=== PATIENT | male | born 1960 | race African-American/Black ===

== ENCOUNTER → 2016-12-26 | Outpatient (CLI) | payer BC ==
[2016-05-31 15:00] VITALS: BP 128/85
[~2016-12-26] MED LIST: ASPI81TA9 PO; ATOR10TA60 PO; INSU100V8 SQ; LIRA0.6P SQ; OLME1TAB35 PO
--- NOTE | 2016-12-26 10:04 | KCIC ---
MR CERVICAL SPINE Indication: Left shoulder and neck pain. Technique: Sagittal T2, sagittal STIR, sagittal T1, and axial gradient echo imaging was obtained of the cervical spine. FINDINGS: There is straightening of the cervical lordosis. Alignment is normal. Vertebral body heights are maintained. Bone marrow signal is within normal limits. There is no cord signal abnormality. The soft tissues of the neck are within normal limits. At C5-6 there is a disc osteophyte complex which causes mild mass effect upon the right aspect of the cord. There is also at least mild to moderate right foraminal stenosis from uncovertebral hypertrophy. Correlate for possible right C6 radiculopathy symptoms. At C6-7 there is a right-sided disc osteophyte complex causing mild mass effect upon the right aspect of the cord. There is also mild right foraminal narrowing. Left uncovertebral hypertrophy causes at least mild to moderate left foraminal stenosis. Correlate for bilateral C7 radiculopathy symptoms. IMPRESSION: At C6-7 there is mild mass effect upon the right aspect of the cord and bilateral foraminal stenosis. Correlate for C7 radiculopathy symptoms. At C5-6 there is mass effect upon the right aspect of the cord and right foraminal narrowing. Correlate for C6 radiculopathy symptoms on the right. Electronically signed by: Russ Wilkins MD (12/26/2016 10:00 AM)
== END | disposition home or self-care (01) ==
LOC: KCIC MRI 08:21
PROVIDERS: ATTEND Family Medicine
DX: M54.12 Radiculopathy, cervical region (principal); M48.02 Spinal stenosis, cervical region
CPT/HCPCS: 72141

== ENCOUNTER → 2017-01-10 | Outpatient (CLI) | payer BC ==
[2016-05-31 15:00] VITALS: BP 128/85
[~2017-01-10] MED LIST changes: +ASPI-612 PO; -ASPI81TA9 PO; +IOHEXOL 180 MG/ML 10 ML VIAL. ONE; +methylPREDNISolone ACETATE 40 MG/ML VIAL. ONE; +methylPREDNISolone ACETATE 80 MG/ML VIAL. ONE
--- NOTE | 2017-01-11 02:17 | PAIN ---
DATE OF SERVICE: 01/10/2017 INITIAL CONSULTATION FOR PAIN CLINIC CHIEF COMPLAINT: Neck and left upper extremity pain. HISTORY OF PRESENT ILLNESS: This is a 56-year-old male who presents with history of pain for about 8 months, increasing gradually over time, but it came on suddenly, but not a result of any specific injury or accident he is aware of. Now pain in the base of the neck, left shoulder, mostly in the posterior scapular region and into the anterior pectoral and into the arm, into the biceps with spasms and a "heavy feeling" in his arm. He did have a cardiac workup for the left-sided pain, which was negative by his report. Also, has some numbness and cramping in the forearm radiating to the hands and into the fingers with some numbness and tingling in the hand on the left side only. The patient reports it is intermittent in intensity, but it is tingling, numbness and radiation with burning and cramping activity sensation as well. The patient reports it does not wake him up at night from sleep. It does not affect his bowel or bladder control or his ability to walk. He did have some physical therapy in the past, which was not helpful for this. He has been doing some stretching, strengthening on his own with his left arm, but does not seem to help. The patient reports significant fatigability with left arm, he has been dropping items and is tearful of dropping more things when he is using his left arm with activity and even with driving ____ as well. The patient rates his disability rate from 0-10, 10 being the worst, is at 3 with family and home responsibilities, recreation and sexual behavior, 2 with social activity, occupation, self-care and life support activities. The patient did have an MRI scan of cervical spine showing C6-C7, mild mass effect on the right aspect of the cord and bilateral foraminal stenosis. C5-C6 showing mass effect on the right aspect of the cord and right foraminal narrowing with C6-C7 left uncovertebral hypertrophy causing at least mild to moderate left foraminal stenosis. PAST MEDICAL HISTORY: Significant for hypertension and diabetes. PREVIOUS SURGERY: Includes a right quadriceps tendon repair in 2006. CURRENT MEDICATIONS: Include NovoLog insulin and blood pressure medication that he is not sure the name of. ALLERGIES: The patient has no known drug allergies. SOCIAL HISTORY: Positive for alcohol, drinks about 2 beers on the weekends, does smoke 3-4 cigarettes a day for the past 25 years. He is and lives locally in [place], [place]. 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 REVIEW OF SYSTEMS: The patient's review of systems is positive for those items mentioned in history of present illness, is complete, full and well documented on the patient's chart. All systems reviewed and otherwise negative. PHYSICAL EXAMINATION: VITAL SIGNS: Today, the patient's blood pressure is 124/87, pulse is 96, respirations 18, temperature 97.7 degrees Fahrenheit, height 6 feet 4 inches, weight is 257 pounds. GENERAL: The patient is awake, alert, oriented, appropriate, very pleasant demeanor. HEENT: Head shows normocephalic, atraumatic. Extraocular movements are intact and symmetrical. Oral cavity shows mucous membranes moist and pink. Dentition is intact. NECK: Shows anterior throat supple without palpable lymphadenopathy noted. Swallow reflex is symmetrical. CHEST: Shows normal on inspection. Breath sounds are clear to auscultation bilaterally. HEART: Shows S1 and S2 clear. ABDOMEN: Soft, nontender, nondistended. No palpable organomegaly. No rebound or guarding demonstrated. BACK: Shows spine grossly in midline, normal-appearing cervical lordotic curvature, thoracic kyphotic curvature, and lumbar lordotic curvature. No previous bruises, lesions, rashes or scars are noted. Cervical paraspinous musculature shows symmetrical on inspection. With palpation shows some moderate tenderness in the middle and inferior aspect of the cervical paraspinous muscles, but only diffusely without radiation. Superior medial trapezius on the left side shows moderate tenderness with palpation, more firm on the right, but normal muscle girth bilaterally without radiation and no asymmetry. The patient shows good rotational motion of the cervical spine, both laterally as well as extension and flexion without significant pain reported in any of the range of motion. EXTREMITIES: Upper extremities show deep tendon reflexes 2+ in the biceps and triceps tendons. Motor exam is strong with direct marketing intern strength rated at 5/5 as is biceps and triceps flexion are intact. Peripheral pulses are 2+ in radial distribution. No peripheral edema is noted. No clubbing, no cyanosis. Upper extremities are warm and dry to touch, equal in color and appearance. Shoulder shrug is strong and intact without loss of strength and resistance as is abduction of the shoulder to 90 degrees without loss of strength with some minor pain reported in the left side with resistance only. IMPRESSION: 1. This is a 56-year-old male with approximately 8-month history of increasing pain in the base of the neck, left upper extremity, shoulder in a radicular fashion. 2. MRI scan of cervical spine as noted. 3. Insulin-dependent diabetes. 4. Hypertension. 5. Cigarette smoking. PLAN: Options were discussed with the patient including conservative medical management, physical therapy and interventional technique. He would like to pursue interventional techniques. We discussed the cervical epidural steroid injection using description as well as anatomical models to describe the procedure. Risks were then discussed including, but not limited to bleeding, infection, possibility of epidural hematoma and subsequent neurologic compromise, dural puncture, headaches, spinal cord and/or nerve damage, side effects of steroid medication and poor results regarding pain control. The patient understands and wishes to proceed. The patient will return to clinic in approximately 2 weeks for followup. He was counseled to return appointment, activity level and side effects to be aware of. DIAGNOSES: Cervical radiculopathy with cervical degenerative disk disease. PROCEDURE: Cervical epidural steroid injection in translaminar approach at the C6-C7 level using C-arm fluoroscopic guidance under sterile prep and drape using local anesthetic. MEDICATIONS INJECTED: Total of 120 mg Depo-Medrol plus 5 mL of preservative-free normal saline and 2 mL of Isovue for contrast. CONDITION AT DISCHARGE: Stable. The patient tolerated procedure well, had no complications. CARY CHUNG MD DR: RYAN/leroy JOB#: [id number] / [id number] Nella Calzada MD
== END | disposition home or self-care (01) ==
LOC: PNCL 08:21
PROVIDERS: ATTEND Anesthesiology
DX: M50.123 Cervical disc disorder at C6-C7 level with radiculopathy (principal); I10 Essential (primary) hypertension; F17.210 Nicotine dependence, cigarettes, uncomplicated; E11.9 Type 2 diabetes mellitus without complications; Z79.4 Long term (current) use of insulin; Z72.89 Other problems related to lifestyle; Z86.39 Personal history of other endocrine, nutritional and metabolic disease
CPT/HCPCS: 62321; J1030; J1040

== ENCOUNTER → 2017-01-25 | Outpatient (CLI) | payer BC ==
[2016-05-31 15:00] VITALS: BP 128/85
== END | disposition home or self-care (01) ==
LOC: PNCL 07:52
PROVIDERS: ATTEND Anesthesiology
DX: M50.30 Other cervical disc degeneration, unspecified cervical region (principal); I10 Essential (primary) hypertension; E11.9 Type 2 diabetes mellitus without complications; F17.200 Nicotine dependence, unspecified, uncomplicated; Z72.0 Tobacco use; Z86.39 Personal history of other endocrine, nutritional and metabolic disease
CPT/HCPCS: 62321; J1030; J1040

== ENCOUNTER → 2017-09-06 | Outpatient (CLI) | payer BC ==
[~2017-09-06] MED LIST changes: -ASPI-612 PO; -ATOR10TA60 PO; -INSU100V8 SQ; +IOHEXOL 180 MG/ML 10 ML VIAL.; -IOHEXOL 180 MG/ML 10 ML VIAL. ONE; -LIRA0.6P SQ; -OLME1TAB35 PO; +methylPREDNISolone ACETATE 40 MG/ML VIAL.; -methylPREDNISolone ACETATE 40 MG/ML VIAL. ONE; +methylPREDNISolone ACETATE 80 MG/ML VIAL.; -methylPREDNISolone ACETATE 80 MG/ML VIAL. ONE
== END | disposition home or self-care (01) ==
LOC: PNCL 08:30
DX: M50.123 Cervical disc disorder at C6-C7 level with radiculopathy (principal); I10 Essential (primary) hypertension; E11.9 Type 2 diabetes mellitus without complications; F17.200 Nicotine dependence, unspecified, uncomplicated; Z72.0 Tobacco use; Z86.39 Personal history of other endocrine, nutritional and metabolic disease
CPT/HCPCS: 62321; J1030; J1040; Q9965

== ENCOUNTER → 2017-10-12 | Outpatient (CLI) | payer BC | END | disposition home or self-care (01) | LOC: PNCL 09:05 | DX: M50.10 Cervical disc disorder with radiculopathy, unspecified cervical region (principal); I10 Essential (primary) hypertension; E11.9 Type 2 diabetes mellitus without complications; F17.210 Nicotine dependence, cigarettes, uncomplicated | CPT/HCPCS: 62321; J1030; J1040; Q9965 ==

== ENCOUNTER → 2018-01-18 | Outpatient (CLI) | payer BC ==
[~2018-01-18] MED LIST changes: +LIDOCAINE 1% PF 2 ML VIAL.
== END ==
LOC: PNCL 08:26
DX: M50.123 Cervical disc disorder at C6-C7 level with radiculopathy (principal); I10 Essential (primary) hypertension; E11.9 Type 2 diabetes mellitus without complications; F17.210 Nicotine dependence, cigarettes, uncomplicated; Z86.39 Personal history of other endocrine, nutritional and metabolic disease; Z79.82 Long term (current) use of aspirin; Z79.4 Long term (current) use of insulin; Z79.899 Other long term (current) drug therapy; Z72.89 Other problems related to lifestyle; Z83.3 Family history of diabetes mellitus
CPT/HCPCS: 62321; J1030; J1040; Q9965

== ENCOUNTER → 2018-05-04 | Outpatient (CLI) | payer BC ==
[2016-05-31 15:00] VITALS: BP 128/85
[~2018-05-04] MED LIST changes: +ASPI-612 PO; +ATOR10TA60 PO; +INSU100V8 SQ; -IOHEXOL 180 MG/ML 10 ML VIAL.; +IOHEXOL 180 MG/ML 10 ML VIAL. ONE; -LIDOCAINE 1% PF 2 ML VIAL.; +LIDOCAINE 1% PF 2 ML VIAL. ONE; +LIRA0.6P SQ; +OLME1TAB35 PO; -methylPREDNISolone ACETATE 40 MG/ML VIAL.; +methylPREDNISolone ACETATE 40 MG/ML VIAL. ONE; -methylPREDNISolone ACETATE 80 MG/ML VIAL.; +methylPREDNISolone ACETATE 80 MG/ML VIAL. ONE
--- NOTE | 2018-05-04 23:57 | PAIN ---
DATE OF SERVICE: 05/04/2018 PROGRESS NOTE FOR PAIN CLINIC DIAGNOSIS: Cervical radiculopathy with cervical degenerative disk disease. HISTORY OF PRESENT ILLNESS: The patient is a 58-year-old male who returns for followup status post cervical epidural steroid injections x 3, last seen on 01/18/2018. The patient did very well with about 95% improvement for 3 months after the injections. The patient reports it has been bothering him now for about 4 weeks or so, increased pain in the base of the neck, left shoulder, left upper extremity, some numbness and tingling, also it is aching and dull in the left arm, occasionally into the hand, mostly in the upper arm or forearm. The patient reports it is aching, tight, tingling, shooting, occasionally stabbing and dull. The patient reports it is 8 on a scale of 10 at its worst, 6 on average and 3 at its least and is a 3 today. The patient reports no new motor or sensory deficits, no right-sided symptoms. No new changes. The patient reports it does not awaken him from sleep at night. He has been sleeping 4-6 hours, but the pain does not awaken him from sleep. PHYSICAL EXAMINATION: VITAL SIGNS: Today, blood pressure is 125/91, pulse 91, respirations are 18, temperature 98.1 degrees Fahrenheit. Height is 76 inches, weight is 277 pounds. GENERAL: The patient is awake, alert, oriented, appropriate, very pleasant demeanor. HEENT: Head shows normocephalic, atraumatic. Extraocular movements are intact, symmetrical. Oral cavity: Mucous membranes moist and pink. Dentition intact. NECK: Shows anterior throat supple without palpable lymphadenopathy noted. Swallow reflex symmetrical. CHEST: Shows normal on inspection. Breath sounds clear to auscultation bilaterally. HEART: Shows S1, S2 clear. No murmurs auscultated. ABDOMEN: Soft, nontender, nondistended. No palpable organomegaly is noted. No rebound or guarding demonstrated. BACK: Shows spine grossly in the midline, normal appearing cervical lordotic curvature, thoracic kyphotic curvature and lumbar lordotic curvature. Cervical paraspinous muscle shows symmetrical on inspection, on palpation shows some moderate tenderness, but only diffusely in the inferior aspect of the cervical paraspinous muscles, more on the left than the right, but symmetrical on inspection. No trigger points, no radiation of pain. The patient has good rotational motion of cervical spine, both laterally greater than 45 degrees right and left, closer to 90 degrees as well as full extension, full flexion without significant pain reported. EXTREMITIES: The patient's upper extremities show deep tendon reflexes 2+ in the biceps and triceps tendons. Motor exam is strong with 5/5 celery wrapper strength, bicep and tricep flexion and symmetrical as well. Peripheral pulses are 2+ radial distribution. No peripheral edema is noted. Options were discussed with the patient. The patient's old chart was reviewed, as his current medication regimen updated. Current review of systems updated today as well. We will proceed with a cervical epidural steroid injection. This is the first in this series today with fluoroscopic guidance. Risks were again discussed including, but not limited to, bleeding, infection, possibility of epidural hematoma, subsequent neurologic compromise, dural puncture, headaches, spinal cord and/or nerve damage, side effects of steroid medication and poor results regarding pain control. The patient understands and wished to proceed. The patient will return to clinic in approximately 2 weeks for followup. She was counseled to return appointment, activity level and side effects to be aware of. DIAGNOSIS: Cervical radiculopathy with cervical degenerative disk disease. PROCEDURE: Cervical epidural steroid injection, translaminar approach at C6-C7 level using C-arm fluoroscopic guidance under sterile prep and drape using local anesthetic. MEDICATION INJECTED: A total of 120 mg Depo-Medrol plus 5 mL of preservative-free normal saline and 2 mL of Isovue for contrast. CONDITION AT DISCHARGE: Stable. The patient tolerated procedure well, had no complications. CARY CHUNG MD DR: RYAN/leroy JOB#: [id number] / [id number]
== END | disposition home or self-care (01) ==
LOC: PNCL 10:07
PROVIDERS: ATTEND Anesthesiology
DX: M50.123 Cervical disc disorder at C6-C7 level with radiculopathy (principal)
CPT/HCPCS: 62321; J1030; J1040; Q9965

== ENCOUNTER → 2021-10-14 | Outpatient (CLI) | payer BC ==
[2016-05-31 15:00] VITALS: BP 128/85
[~2021-10-14] MED LIST changes: +AMLO-187 PO; -ASPI-612 PO; +ASPI-886 PO; +DEXAMETHASONE PRES.FREE 10 MG/ML VIAL. ONE; +INSU100I32 SQ; -LIDOCAINE 1% PF 2 ML VIAL. ONE; +LOSA100T14 PO; -methylPREDNISolone ACETATE 40 MG/ML VIAL. ONE; -methylPREDNISolone ACETATE 80 MG/ML VIAL. ONE
--- NOTE | 2021-10-14 13:02 | PDOC1 ---
INITIAL PAIN CONSULT DATE OF SERVICE: DOS: DATE: 10/14/21 TIME: 12:56 CHIEF COMPLAINT: Chief Complaint: Low back and left lower extremity pain HISTORY OF PRESENT ILLNESS: [id number] male presents history of pain low back left lower extremity for about 1 year not the result of any specific injury or accident that he is aware of is getting worse with time worse with walking and standing area notices the pain across the low back and into the left lower extremity posterior gluteus lateral thigh anterior thigh anteromedial thigh some on the right side in the gluteus but not into the leg on the right side patient reports to be getting worse over time worse with standing walking changing positions better with sitting or laying down generally does not awaken her from sleep at night patient reports is not effective bowel bladder control does affect his ability to walk although is not use any assistive device such as canes or walker to ambulate. Patient has undergone physical therapy recently as July of this year which was helpful with some strengthening improvement he believes in the left leg but not reducing the pain significantly. Patient rates his disability rating 0-10 10 being the worst is a 4 family home responsibilities 8 with recreation 9 with social activity 3 with occupation 1 with sexual behavior 0 self-care and to with life support activities. Patient scribes the pain is aching and dull cramping in the back shooting and throbbing stabbing in the left lower extremity worse as the day goes by intermittent intensity but always present with some numbness in the thigh as well laterally. Patient reports no bowel or bladder incontinence. PAST MEDICAL HISTORY: PMH: Arthritis, diabetes, cigar smoking PREVIOUS SURGERIES: Past Surgical Hx: Left quadriceps repair 2005, hemorrhoidectomy 2003, vasectomy in the past. CURRENT MEDICATIONS: Current Meds: Active Scripts Medications Dose Route/Sig Max Daily Dose Days Date Category Basaglar Kwikpen U-100 (Insulin Glargine,Hum.rec.anlog) 100 Unit/1 Ml Insuln.pen 72 Unit SQ HS 10/14/21 Reported Losartan Potassium 100 Mg Tablet 100 Mg PO DAILY 10/14/21 Reported Amlodipine Besylate 10 Mg Tablet 10 Mg PO DAILY 10/14/21 Reported Victoza 2-Edgar (Liraglutide) 0.6 Mg/0.1 Ml Pen.injctr 18 Mg SQ DAILY 05/30/16 Reported ALLERGIES; Allergies: Coded Allergies: No Known Drug Allergies (Unverified , 05/30/16) FAMILY HISTORY: Family Hx: Diabetes SOCIAL HISTORY: Social Hx: Patient drinks alcohol about once a week smokes cigars but not cigarettes not use any illegal licit recreational drugs is single lives locally in [place] 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 REVIEW OF SYSTEMS: ROS: Positive for those items mentioned in history of present illness, all systems are reviewed, otherwise negative ,and are complete full and well-documented on patient's chart. PHYSICAL EXAM: VS: Blood pressure 143/96 pulse 98 respirations 18 temperature 97.8 F height 6 feet 3 inches weight is 263 pounds. PE: PHYSICAL EXAMINATION: GENERAL: The patient is awake, alert, oriented, appropriate, very pleasant in demeanor HEENT: Shows normocephalic, atraumatic. Extraocular movements are intact and symmetrical. Oral cavity: Mucous membranes moist and pink. Dentition is intact. NECK: Shows anterior throat supple without palpable lymphadenopathy noted. Swallow reflex symmetrical. CHEST: Shows normal on inspection. Breath sounds are clear bilaterally, distant but no rales rhonchi wheezes auscultated. HEART: Shows S1, S2 clear. No murmurs auscultated. ABDOMEN: Soft, nontender, nondistended. No palpable organomegaly is noted. BACK: Shows spine grossly in the midline. Normal-appearing cervical lordotic curvature. There is slightly increased thoracic kyphosis, some minor flattening of the lumbar lordotic curvature. Lumbar paraspinous muscles show symmetrical on inspection, on palpation shows some moderate tenderness diffusely throughout the upper, middle and lower distribution of the paraspinous muscles bilaterally and also into the lower thoracic paraspinous musculature, firm and tender, but without specific trigger points, without radiation of pain. The patient has good rotational motion of the lumbar spine, both laterally as well as extension and flexion without significant difficulty. No tenderness over the spinous processes, sacrum or sacroiliac regions. EXTREMITIES: Lower extremities show deep tendon reflexes 2+ in the patellar and tendo calcaneus tendons. Motor exam is 5 on a scale of 5 with right dorsiflexion, extension, quadriceps and hamstring flexion and 4/5 on the left. Peripheral pulses are 1+ posterior tibial. No peripheral edema is noted bilaterally. Lower extremities are warm and dry to touch, equal in color and appearance. Straight leg raise noted to be positive on the left at approximate 45 degrees decreased with knee flexion, right side is negative. Gaenslen's and Chandu's maneuvers are negative bilaterally. The patient is able to stand, stand on his toes without significant difficulty or loss of balance walks with a slight favoring gait does appear to favor the left lower extremity very mildly and not use any assistive devices to ambulate such as canes or walkers. SKIN: Shows warm and dry, good turgor. No edema. No sores, rashes or bruising throughout. IMPRESSION: Impression: 61-year-old male with approximate 1 year history low back left lower extremity pain in a radicular fashion Arthritis Diabetes Plan: Options were discussed the patient occluding conservative management physical therapy interventional techniques. Patient would like to pursue interventional techniques as he is currently undergoing physical therapy with some strength improvement but no reduction in pain. We discussed a lumbar epidural steroid injection using descriptions as well as anatomical models to describe the procedure. Risks were discussed including but not limited to: Bleeding, infection, possibility of epidural hematoma and subsequent neurological compromise, dural puncture, headaches, spinal cord and/or nerve damage, side effects of steroid medication, and poor results regarding pain control. Patient understands and wished to proceed. Patient will return to clinic in approximately 2 weeks for follow-up, was counseled as to return appointment, active level, and side effect to be aware of. Procedure is lumbar epidural steroid injection under local anesthetic using sterile prep and drape at the L4-5 level using C-arm fluoroscopic guidance in both AP and lateral views medications injected is 20 mg dexamethasone +10mL pr eservative-free normal saline and 2 mL contrast- condition at discharge is stable patient tolerated procedure well had no complications. CARY CHUNG MD Oct 14, 2021 13:02
--- NOTE | 2021-10-14 13:02 | PDOC4 ---
Procedure Note: ICD 10 Code: ICD 10 Code: M54.16 M51.36 Procedure Note: Patient was consented for lumbar epidural steroid injection with fluoroscopic guidance. Risks were discussed including but not limited to: Bleeding, infection, possibility of epidural hematoma and subsequent neurological compromise, dural puncture, headaches, spinal cord and/or nerve damage, side effects of steroid medication, and poor results regarding pain control. Patient understands and wished to proceed. Procedure is lumbar epidural steroid injection under local anesthetic using sterile prep and drape at the L4-5 level using C-arm fluoroscopic guidance in both AP and lateral views medications injected is 20 mg dexamethasone +10mL preservative-free normal saline and 2 mL contrast- condition at discharge is stable patient tolerated procedure well had no complications. CARY CHUNG MD Oct 14, 2021 13:02
== END | disposition home or self-care (01) ==
LOC: PNCL 08:20
PROVIDERS: ATTEND Anesthesiology
DX: M51.16 Intervertebral disc disorders with radiculopathy, lumbar region (principal); M79.605 Pain in left leg; M54.50 Low back pain, unspecified; M19.90 Unspecified osteoarthritis, unspecified site; E11.9 Type 2 diabetes mellitus without complications; Z87.891 Personal history of nicotine dependence; Z79.899 Other long term (current) drug therapy; Z98.890 Other specified postprocedural states; Z72.89 Other problems related to lifestyle
CPT/HCPCS: 62323; G0463; J1100; Q9965

== ENCOUNTER → 2021-12-08 | Outpatient (CLI) | payer BC ==
[2016-05-31 15:00] VITALS: BP 128/85
--- NOTE | 2021-12-08 10:35 | PDOC ---
Progress Note - Pain Clinic Date of Service: DOS: DATE: 12/08/21 TIME: 10:32 Diagnosis: Dx: Lumbar radiculopathy with lumbar degenerative disc disease History or Present Illness: HPI: 61-year-old male returns for follow-up status post lumbar epidural steroid injection last seen October 14, 2021 patient reports he did very well with about a 50% improvement for about 4 weeks the pain began to return however, and was previously in the left lower extremity as well as the low back and now is on the right lower extremity as well as the left lower extremity which is new over the past month or so patient reports no recent injury or accident to explain increa sed pain and distribution on the right side as well as the left but is most noticeable with sitting for prolonged periods also standing for prolonged periods greater than 15 to 20 minutes patient reports an aching and sharp pain burning in the back radiating shooting lower extremities posterior gluteus posterior lateral thigh lateral anterior thigh anteromedial thighs medial lower legs get worse on the left but present on the right now as well patient reports is 8 on scale 10 is worse over the past week 6 on average 4 to [place] is a 4 today. Patient reports no bowel or bladder incontinence no loss of motor function but significant fatigability of both lower extremities with sitting and standing. Physical Exam: VS: Blood pressure is 126/81 pulse 87 respirations 18 temperature 97.8 F height is 6 feet 3 inches weight is 261 pounds. PE: PHYSICAL EXAMINATION: GENERAL: The patient is awake, alert, oriented, appropriate, very pleasant in demeanor HEENT: Shows normocephalic, atraumatic. Extraocular movements are intact and symmetrical. Oral cavity: Mucous membranes moist and pink. Dentition is intact. NECK: Shows anterior throat supple without palpable lymphadenopathy noted. Swallow reflex symmetrical. CHEST: Shows normal on inspection. Breath sounds are clear bilaterally, no rales rhonchi or wheezes auscultated. HEART: Shows S1, S2 clear. No murmurs auscultated. ABDOMEN: Soft, nontender, nondistended. No palpable organomegaly is noted. BACK: Shows spine grossly in the midline. Normal-appearing cervical lordotic curvature. There is slightly increased thoracic kyphosis, some mild flattening of the lumbar lordotic curvature. Lumbar paraspinous muscles show symmetrical on inspection, on palpation shows some moderate tenderness diffusely throughout the upper, middle and lower distribution of the paraspinous muscles, without specific trigger points, without radiation of pain. The patient has good rotational motion of the lumbar spine, both laterally as well as extension and flexion without significant difficulty. EXTREMITIES: Lower extremities show deep tendon reflexes 2 in the patellar and tendo calcaneus tendons. Motor exam is 5 on a scale of 5 with right dorsiflexion, extension, quadriceps and hamstring flexion and 4/5 on the left. Peripheral pulses are 1 posterior tibial. No peripheral edema is noted bilaterally. Lower extremities are warm and dry to touch, equal in color and appearance. SKIN: Shows warm and dry, good turgor. No edema. No sores, rashes or bruising throughout. Procedure: Procedure: Options discussed with the patient. Patient's old chart was reviewed his his current medication regimen updated current review of systems updated today as well. We will proceed with a lumbar epidural steroid injection today with fluoroscopic guidance. Risks were discussed including but not limited to: Bleeding, infection, possibility of epidural hematoma and subsequent neurological compromise, dural puncture, headaches, spinal cord and/or nerve damage, side effects of steroid medication, and poor results regarding pain control. Patient understands and wished to proceed. Patient will return to clinic in approximately 4 weeks for follow-up, was counseled as to return a ppointment, activity level, and side effects to be aware of. Medication Injected: Med Injected: Procedure is lumbar epidural steroid injection under local anesthetic using sterile prep and drape at the L4-5 level using C-arm fluoroscopic guidance in both AP and lateral views medications injected is 20 mg dexamethasone +10mL preservative-free normal saline and 2 mL contrast- condition at discharge is stable patient tolerated procedure well had no complications. Condition at Discharge: Condition at Discharge: Condition at discharge stable, patient tolerated procedure well and had no complications. CARY CHUNG MD December 08, 2021 10:35
--- NOTE | 2021-12-08 10:36 | PDOC4 ---
Procedure Note: ICD 10 Code: ICD 10 Code: M54.16 M51.36 Procedure Note: Patient is consented for lumbar epidural steroid injection with fluoroscopic guidance. Risks were discussed including but not limited to: Bleeding, infection, possibility of epidural hematoma and subsequent neurological compromise, dural puncture, headaches, spinal cord and/or nerve damage, side effects of steroid medication, and poor results regarding pain control. Patient understands and wished to proceed. Procedure is lumbar epidural steroid injection under local anesthetic using sterile prep and drape at the L4-5 level using C-arm fluoroscopic guidance in both AP and lateral views medications injected is 20 mg dexamethasone +10mL preservative-free normal saline and 2 mL contrast- condition at discharge is stable patient tolerated procedure well had no complications. CARY CHUNG MD December 08, 2021 10:36
== END | disposition home or self-care (01) ==
LOC: PNCL 08:50
PROVIDERS: ATTEND Anesthesiology
DX: M51.16 Intervertebral disc disorders with radiculopathy, lumbar region (principal); I10 Essential (primary) hypertension; E11.9 Type 2 diabetes mellitus without complications; F17.210 Nicotine dependence, cigarettes, uncomplicated; Z79.4 Long term (current) use of insulin; Z79.899 Other long term (current) drug therapy; Z98.890 Other specified postprocedural states
CPT/HCPCS: 62323; J1100; Q9965